=== PATIENT | male | born 1950 | race Caucasian/White ===

== ENCOUNTER 2022-03-08 07:19 | Inpatient (IN) | payer OTHER, MEDICARE ==
[2022-03-01 12:17] VITALS: BMI 25.1
[2022-03-08] MEDS ORDERED: TRANEXAMIC ACID 1000 MG/10 ML VIAL IVPUSH ONE (07:38)
[2022-03-08] MEDS ORDERED: CEFAZOLIN 2 GM in DEXTROSE 5%-WATER - 50 ML IVPB ONE (07:38)
[2022-03-08] MEDS ORDERED: ONDANSETRON 4 MG/2 ML VIAL IVPUSH PRN ×2 (09:48→12:00)
[2022-03-08] MEDS ORDERED: MAG HYDROX/AL HYDROX/SIMETH 30 ML UNIT-DOSE CUP PO PRN (09:48)
[2022-03-08] MEDS ORDERED: BUPIVACAINE HCL/PF 0.5% (5MG/ML) 10 ML VIAL ONE (09:50)
[2022-03-08] MEDS ORDERED: SODIUM CHLORIDE 0.9% P/F 10 ML VIAL IJ ONE (09:50)
[2022-03-08] MEDS ORDERED: BUPIVACAINE LIPOSOME/PF (EXPAREL) 266 MG/20 ML VIAL ONE (09:50)
[2022-03-08] MEDS ORDERED: MIDAZOLAM HCL 2 MG/2 ML SINGLE DOSE VIAL ONE (09:50)
[2022-03-08] MEDS ORDERED: LACTATED RINGERS SOLUTION 1,000 ML IV SCH (10:00)
[2022-03-08] MEDS ORDERED: SUCCINYLCHOLINE CHLORIDE 200 MG/10 ML SYRINGE ONE (10:12)
[2022-03-08] MEDS ORDERED: PROPOFOL 20 ML ONE ×2 (10:12)
[2022-03-08] MEDS ORDERED: DEXAMETHASONE SOD PHOSPHATE 4 MG/1 ML VIAL ONE (10:13)
[2022-03-08] MEDS ORDERED: TRANEXAMIC ACID 1000 MG/10 ML VIAL ONE ×2 (10:13→11:19)
[2022-03-08] MEDS ORDERED: ceFAZolin SODIUM 1 GM VIAL ONE ×3 (10:13→23:37)
[2022-03-08] MEDS ORDERED: ONDANSETRON 4 MG/2 ML VIAL ONE (10:13)
[2022-03-08] MEDS ORDERED: oxyCODONE HCL 5 MG TABLET PO PRN (12:00)
[2022-03-08] MEDS ORDERED: ACETAMINOPHEN 500 MG TABLET (FP) ONE (13:18)
[2022-03-08] MEDS: ACETAMINOPHEN 500 MG TABLET (FP) PO SCH ×3 (13:30→23:05)
[2022-03-08] MEDS ORDERED: DEXTROSE 5%-WATER - 50 ML IVPB ONE ×2 (17:08→23:38)
[2022-03-08] MEDS: CEFAZOLIN 2 GM in DEXTROSE 5%-WATER - 50 ML IVPB SCH (17:16)
[2022-03-08] MEDS: ASCORBIC ACID 500 MG TABLET (FP) PO SCH ×2 (17:40→21:51)
[2022-03-08] MEDS: PANTOPRAZOLE 40 MG TABLET PO SCH (17:40)
[2022-03-08] MEDS: MULTIVITAMINS (DAILY MVI) TABLET (FP) PO SCH (17:40)
[2022-03-08] MEDS: SENNOSIDES/DOCUSATE COMBO (SENNA PLUS) TABLET (UD) PO SCH (21:51)
[2022-03-08] MEDS: ASPIRIN COATED 81 MG TABLET.EC PO SCH (21:51)
[2022-03-08] MEDS: oxyCODONE HCL 5 MG TABLET PO PRN (23:04)
[2022-03-09] MEDS: CEFAZOLIN 2 GM in DEXTROSE 5%-WATER - 50 ML IVPB SCH (01:28)
[2022-03-09] MEDS: oxyCODONE HCL 5 MG TABLET PO PRN ×2 (05:53→09:05)
[2022-03-09] MEDS: ACETAMINOPHEN 500 MG TABLET (FP) PO SCH ×2 (05:53→11:30)
[2022-03-09 08:50] VITALS: BP 129/63; PULSE 75; TEMP 97.9
[2022-03-09] MEDS: PANTOPRAZOLE 40 MG TABLET PO SCH (09:05)
[2022-03-09] MEDS: SENNOSIDES/DOCUSATE COMBO (SENNA PLUS) TABLET (UD) PO SCH (09:05)
[2022-03-09] MEDS: ASCORBIC ACID 500 MG TABLET (FP) PO SCH (09:05)
[2022-03-09] MEDS: MULTIVITAMINS (DAILY MVI) TABLET (FP) PO SCH (09:05)
[2022-03-09] MEDS: ASPIRIN COATED 81 MG TABLET.EC PO SCH (09:05)
== END 2022-03-09 11:57 | disposition home or self-care (01) | DRG 470 ==
LOC: FM/S 07:19 → UNDOADMIN 07:19 → FM/S 14:00
PROVIDERS: ADMIT Orthopaedic Surgery; ATTEND Orthopaedic Surgery
PROC: 8E0Y0CZ Robotic Assisted Procedure of Lower Extremity, Open Approach (ICD-10-PCS; 2022-03-08)
PROC: 0SRC069 Replacement of Right Knee Joint with Oxidized Zirconium on Polyethylene Synthetic Substitute, Cemented, Open Approach (ICD-10-PCS; principal; 2022-03-08 10:30)
DX: M17.11 Unilateral primary osteoarthritis, right knee (principal)
CPT/HCPCS: 73560-TC-RT-FY; 86850; 86900; 86901; 88305-TC; 88311-TC; 94760; 97010-GP; 97116-GP; 97162-GP